=== PATIENT | male | born 1935 | race Caucasian/White ===

== ENCOUNTER 2024-04-20 13:15 | Inpatient (IN) | payer MEDICARE, BC, SELFPAY ==
[2024-04-20] VITALS (9 sets, daily range): BP systolic 112–144; BP diastolic 63–88; BMI 20.7
--- NOTE | 2024-04-20 10:35 | ED.SKININJ ---
HPI-Injury
General
Chief Complaint: Fall
Source: patient
Exam Limitations: none
Time Seen by Provider: 04/20/24 10:16
Nursing documentation reviewed up to this point in time: agreed with
History of Present Illness-Injury
Initial Injury comments:
88-year-old male who states he has no past medical history, takes no medications, 'I have been doctoring myself,' for generalized 'bone pain.' He was taking his dog to the [employer] today, the dog pulled and pulled him down onto the ground he
landed on his left hip and scraped his left elbow. He denies hitting his head. He has left hip pain and inability to lift the leg. He denies chest pain or shortness of breath. Denies abdominal pain. He states he has had no appetite, and has
been getting weaker. He states he has 'recurring bone ache all over and trouble walking' and is concerned he has cancer. He states he was evaluated at [facility] 5 or 6 weeks ago and 'they could find nothing.'
Past History
Past History
ED Past Medical History: None
Social History
Tobacco: Non-smoker
Alcohol: None
Personal: Single
Living: alone
Review of Systems
Review of Systems
Allergies reviewed?: Yes
All Other Systems: ROS reviewed and negative except as documented in HPI and ROS
Constitutional: Reports fatigue; Denies fever
Respiratory: Denies trouble breathing
Cardiac: Denies syncope
ABD/GI: Denies abdominal pain, nausea, vomiting or diarrhea
: Denies dysuria, frequency or difficulty voiding
Musculoskeletal: Reports edema and other (Generalized 'bony pain.')
Skin: Reports other (scrape left elbow)
Neurological: Reports no symptoms
Phy Exam
Physical Exam
Physical Exam:
GENERAL: No acute distress. A&Ox3.
CONSTITUTIONAL: Afebrile.
EYES: PERRL, conjunctivae normal
ENMT: Dry mucus membranes, Pharynx nl, hard of hearing
RESPIRATORY: Regular respirations, nonlabored, lungs clear.
CARDIOVASCULAR: Irregular normal rate, rhythm, no murmurs, no rubs.
GI: Soft, nontender, normal BS
MUSCULOSKELETAL: No spinal bony tenderness. Unable to move left leg due to left hip pain. Left leg mildly shortened and foot rotated outward. +1 pitting edema bilateral lower extremities, +2 pitting edema of the dorsi of the feet. Well perfused.
SKIN: Warm, dry, pink
PSYCH: Normal mood and affect. Well kept, interactive and appropriate
NEUROLOGIC: Awake, alert and oriented. No focal neurological deficits
Course
Orders/Labs/Results
Orders:
Orders
04/20/24 Breakfast
NPO
Allow oral meds: Yes
Allow clear liquids: No
NPO with Ice Chips: No
04/20/24 09:53
Hip, Left 2-3 Views [CR Hip - LT w/wo Pel 2-3 Vw*] Urgent
Comment:
Reason For Exam: pain
Include a pelvis x-ray?: Yes
04/20/24 10:29
CR Chest Single View Urgent
Reason For Exam: fall
04/20/24 10:32
Morphine Sulfate 2 mg IV NOW STA
04/20/24 10:33
Electrocardiogram (*1) Urgent
Reason for Study: Fatigue / Weakness
EKG- Treatment ONCE
04/20/24 10:36
Tetanus/Diphth/Acelpertussis [Adacel] 0.5 ml IM .ONCE ONE
04/20/24 10:39
Complete Blood Count/With Diff Urgent
Comprehensive Metabolic Panel Urgent
NT-proBNP Urgent
TSH Urgent
Comment: ADD ON
Troponin I Urgent
04/20/24 12:07
PTT Urgent
Prothrombin Time Urgent
04/20/24 12:32
Echo 2D MMode Color/Doppler Routine
Reason for Study: chf
CARDIOLOGY CONSULT Routine
Consulting Provider: Carlos Mooney
Was physician already notified: Yes
Reason for consult: bilat leg edema
Consult Orthopedic [ORTHOPEDIC CONSULT] Routine
Consulting Provider: Cheng Vaz
Was physician already notified: Yes
Reason for consult: left hip fx
04/20/24 12:39
Admit/Transfer Patient As Directed
Co-Sign Provider:
Level of Care: Inpatient admission
Assign to:: Telemetry
Physician / Group: beth calderon
Diagnosis: mechan fall w/ L hip fx,pseudothrombocytopenia, periph edema
Reason for Telemetry: Arrhythmia
Date to Stop Telemetry: 04/23/24
Time to Stop Telemetry: 11:00
Reason for Hospitalization: mechan fall w/ L hip fx,pseudothrombocytopenia, periph edema concern chf,
prolonged qtc
Expected length of stay greater than two midnights?: Yes
ELOS- Estimated Length of Stay in days: 5
I certify the patient meets the requirements for IP care: Yes
Code Status As Directed
Resuscitation Status: Do not resuscitate
Reached after discussion with pt or family/Healthcare POA: Yes
Based on pt advanced directive or healthcare POA form: Yes
Decision communicated with: per pt with son present at bedside
04/20/24 12:40
DNR Bracelet Application ONCE
04/20/24 13:00
Flush (0.9% Sodium Chloride) [Flush (Nss)] See Dose Instructions IV PER PROTOCOL
04/20/24 14:37
Magnesium Hydroxide [Milk of Magnesia] 30 ml PO DAILYPRN PRN
Morphine Sulfate 2 mg IV Q4HPRN PRN
Oxycodone [Roxicodone] 5 mg PO Q4HPRN PRN
Tamsulosin [Flomax] 0.4 mg PO DAILYPRN PRN
04/20/24 14:37
Activity As Directed
Activity Level: As Tolerated
Bladder Scan As Directed
Follow Bladder Retention/Intermittent Cath Algorithm?: Yes
PRN if no void in __ hours: 6
Comment: if not voiding 6 hrs upon arrival to floor, bladder scan & follow algorithm
Intake/ Output As Directed
Frequency: Per unit guidelines
Pneumatic Compression Sleeves As Directed
Type: Knee high
Straight Cath As Directed
Frequency: Per Retention Algorithm
Additional Instructions: straight cath as needed per acute urinary retention algorithm for 24 hrs
Additional Instructions: for bladder scan greater than 400 mL
Vital Signs As Directed
Frequency: Per unit guidelines
dressing care [Wound Care] As Directed
Location of Wound: left elbow
Treatment of Wound: daily soap with water then apply nonstick dressing with cling
Ot Eval And Treat Routine
DX Deep Vein Thrombosis Video Routine
04/20/24 Dinner
Regular
At Your Request: Limited Participation
04/20/24 15:20
Type+Screen Routine
CBC/With Diff [Complete Blood Count/With Diff] Urgent
04/20/24 16:00
Acetaminophen [Tylenol] 650 mg PO Q4HWA
04/20/24 20:00
Docusate Sodium [Colace] 100 mg PO BID
Sennosides [Senokot] 17.2 mg PO BID
04/21/24 Breakfast
NPO
Allow oral meds: Yes
Allow clear liquids: Sips of Clears
04/21/24 09:00
CeFAZolin 2 GRAM [Ancef] 2 grams in 10 ml IV PRE PROCEDURE
Povidone Iodine 10% Solution [Povidone Iodine 10%] 19 ml 0.9% Sodium Chloride 500 ml [Nss] 500 ml IRRIG OR
04/22/24 12:39
Pt Eval And Treat Routine
Treatment: after or for left hip fx
Activity Level: As Tolerated
04/23/24 11:00
DC Protocol for Telemetry ONCE
Abnormal Lab Results
04/20/24 04/20/24
10:39 12:07
RBC 4.09 L 10^6/uL
(4.70-6.10)
Hgb 11.9 L g/dL
(13.0-18.0)
Hct 36.7 L %
(39.0-52.0)
MCHC 32.4 L g/dL
(33.0-37.0)
RDW 16.1 H %
(11.5-14.5)
Abs Immat Gran (auto) 0.1 H 10^3/uL
(0-0.05)
Absolute Lymphs (auto) 1.1 L 10^3/uL
(1.2-3.4)
Immature Gran % 1.5 H %
(0-0.5)
PT 15.4 H Sec
(11.4-14.6)
Sodium 133 L mmol/L
(135-145)
Alkaline Phosphatase 337 H U/L
(38-126)
Total Protein 5.1 L g/dl
(6.3-8.2)
Albumin 3.1 L g/dl
(3.5-5.0)
04/20/24 10:39
04/20/24 10:39
Vital Signs
Initial and Last Documented VS:
Initial Vital Signs
Temp Pulse Resp BP Pulse Ox
98.9 F 75 18 132/88 94
04/20/24 09:46 04/20/24 09:46 04/20/24 09:46 04/20/24 09:46 04/20/24 09:46
Last Documented Vital Signs
Temp Pulse Resp BP Pulse Ox
97.4 F 86 16 146/90 95
04/21/24 03:29 04/21/24 03:29 04/21/24 03:29 04/21/24 03:29 04/21/24 03:29
MDM/Problems Addressed
Differential Diagnosis Includes:
fx left hip
MDM/Problems Addressed:
88-year-old male who states he has no past medical history, takes no medications, 'I have been doctoring myself,' for generalized 'bone pain.' He was taking his dog to the [facility] today, the dog pulled and pulled him down onto the ground he
landed on his left hip and scraped his left elbow. He denies hitting his head. He has left hip pain and inability to lift the leg. He denies chest pain or shortness of breath. Denies abdominal pain. He states he has had no appetite, and has
been getting weaker. He states he has 'recurring bone ache all over and trouble walking' and is concerned he has cancer. He states he was evaluated at [facility] 5 or 6 weeks ago and 'they could find nothing.'
Afebrile, NAD
CBC with no clinically significant abnormality
CMP with no clinically significant abnormality, mild elevation of alk phosphatase
Left hip x-ray: Fracture surgical neck versus intertrochanteric
Chest x-ray: Radiology report read: IMPRESSION:
1. Mild cardiomegaly.
2. Suggestion of mild pulmonary vascular congestion.
PT/INR, PTT pending
Hospitalist and orthopedics notified of admission
*Critical Care Note
Total Time (30-74mins, 75-104mins- exclusive of procedures): Not Applicable
ED Attending Note
-
Portions of this chart may have been created with voice recognition software.� Occasional wrong word or��sound alike� substitutions may have occurred due to the inherent limitations of voice recognition software.
Discharge Plan
Departure
Patient Disposition: Admit
Date of Disposition: 04/20/24
Time of Disposition: 11:44
Admit to: Med/Surg
Presentation/result/management discussed w/ accepting MD/DO: Hospitalist
Condition: Fair
Discharge Problem:
Closed left hip fracture, Abrasion of left elbow
Interventions
Interventions:
*Risk Screen - Suicide Last Done: 04/20/24 09:46
*General Assessment Last Done: 04/20/24 09:46
*Neglect/Abuse Screening Last Done: 04/20/24 09:46
ED- Fall Risk Assessment Last Done: 04/20/24 14:32
*ED COVID-19 Vaccine History Last Done: 04/20/24 09:46
*Nursing Disposition Last Done: 04/20/24 14:32
ED-Musculoskeletal Assessment Last Done: 04/20/24 09:46
ED- Neurological Assessment Last Done: 04/20/24 09:46
ED-Skin Assessment Last Done: 04/20/24 09:46
Discharge Date and Time
Discharge Date/Time: 04/20/24 14:35
[2024-04-20] MEDS: MORPHINE SULFATE 2 MG IV ×2 (10:40→22:23)
[2024-04-20 10:58] LABS: % Basophils 0.8 % (0-2); % Eosinophils 0.8 % (0-6); % Immature Granulocytes 1.5 % (0-0.5); % Lymphocytes 21.2 % (20.5-51.1); % Monocytes 9.3 % (1.7-9.3); % Neutrophils 66.4 % (42.2-75.2); Absolute Immature Granulocytes 0.1 10^3/uL (0-0.05); Absolute Lymphocytes 1.1 10^3/uL (1.2-3.4); Absolute Monocytes 0.5 10^3/uL (0.1-0.6); Absolute Neutrophils 3.5 10^3/uL (1.4-6.5); Hematocrit 36.7 % (39.0-52.0); Hemoglobin 11.9 g/dL (13.0-18.0); Mean Corp Hgb Conc. 32.4 g/dL (33.0-37.0); Mean Corpuscular Hgb 29.1 pg (27.0-31.0); Mean Corpuscular Volume 89.7 fL (80.0-94.0); Nucleated Red Blood Cells % 0 % (-); Red Blood Cell Count 4.09 10^6/uL (4.70-6.10); Red Cell Dist. Width 16.1 % (11.5-14.5); White Blood Cell Count 5.3 10^3/uL (4.8-10.8)
[2024-04-20 11:13] LABS: ALT (SGPT) 14 U/L (0-50); AST (SGOT) 27 U/L (17-59); Albumin 3.1 g/dl (3.5-5.0); Alkaline Phosphatase 337 U/L (38-126); Blood Urea Nitrogen 17 mg/dl (9-20); Calcium 9.4 mg/dl (8.4-10.2); Carbon Dioxide 22 mmol/L (22-30); Chloride 103 mmol/L (98-107); Estimated Creatinine Clearance 58 ml/min; Glucose 94 mg/dl (70-99); Potassium 4.4 mmol/L (3.5-5.1); Sodium 133 mmol/L (135-145); Total Bilirubin 0.6 mg/dl (0.2-1.3); Total Protein 5.1 g/dl (6.3-8.2); eGFR > 60.00
[2024-04-20 11:17] LABS: NT-proBNP 3580 pg/ml; Troponin I < 0.012 ng/ml
--- NOTE | 2024-04-20 12:13 | HPS.HSE ---
Family Physician
-
Family Physician: NOT KNOW UNKNOWN - PT DOES
Chief Complaint
-
Fall left hip pain
History of Present Illness
88-year-old male who reports he fell in the parking lot on his left side as his dog was pulling the leash trying to run after an animal. He presented to the ER by EMS with left-sided hip pain and rotation of his left leg with left elbow abrasion.
He denies medical problems. He reports he sees a doctor once a year and was seen 3 weeks ago. He has bilateral leg edema +2 he reports has been for 10 years although has not seen a booth cleaner and had any evaluation.
He denies headache, neck pain, fever, chills, chest pain, palpitations, shortness breath, cough, abdominal pain, nausea, vomiting, diarrhea, urinary symptoms. He denies any past medical history
Medical History
Past Medical History
Past Medical History: Reports None
Past Surgical History: Reports Other (Pilonidal cyst removal)
Social History
Tobacco: Non-smoker
Alcohol: None
Drug: None
Personal: Single
Living: Alone
Employment: Retired
Family History
Family History: Not pertinent
Allergies / Home Medications
Allergies reflects when Allergies were last updated in [employer].
Home Medications with original date entered in [employer]
Allergy/Medication List:
Allergies
Allergy/AdvReac Type Severity Reaction Status Date / Time
No Known Allergies Allergy Unverified 04/20/24 09:49
Home Medications
Herbals And Vitamins 1 dose PO DAILY Supplement 04/20/24
mirtazapine 15 mg tablet 15 mg PO mental health/sleep 04/20/24
Review of Systems
-
History Source: Patient and Family (son at bedside )
Constitutional: Denies Fever, Fatigue or Chills
EENT: Reports Other (Chronic dry eye with bilateral extropion present); Denies Sore Throat or Runny Nose
Respiratory: Denies Cough or Trouble Breathing
Cardiac: Denies Chest Pain, Diaphoresis, Palpitations or Syncope
Abdomen/GI: Denies Abdominal Pain, Nausea, Vomiting, Diarrhea, Constipated, Bloody Stools or Black Stools
: Denies Dysuria, Frequency, Flank Pain, Incontinence or Difficulty Voiding
Musculoskeletal: Reports Joint Pain (Left hip with left hip rotation) and Edema (Bilateral +2 lower extremity edema)
Skin: Denies Itching or Rash
Neurological: Denies Dizzy, Headache or Weakness
Endocrine: Reports No Symptoms
Hematologic/Lymphatic: Reports No Symptoms
Psych: Reports Calm
Physical Exam
Vital Signs
Vital Signs
Temp Pulse Resp BP Pulse Ox
98.9 F 73 20 130/69 100
04/20/24 09:46 04/20/24 10:30 04/20/24 10:30 04/20/24 10:00 04/20/24 10:30
Physical Exam
General: Comfortable and Conversant; No Fever or Chills
HEENT: NormoCephalic, Anicteric, Atraumatic, PERRLA, [place] Conjunctivae, No Ptosis, Neck Nontender and Other (Chronic dry eye with bilateral extropion present)
Respiratory: Clear; No Wheezes, Rales or Rhonchi
Cardiac: S1/S2, Regular Rhythm and Peripheral Edema (+2 bilateral lower legs); No Murmur, Rub, Gallop or JVD
Breast: Deferred by me
GI: Soft, Non Tender, Non Distended, Normal Bowel Sounds and No Hepatosplenomegaly
Rectal: Deferred by Provider
Genito-urinary: Deferred by me
Musculoskeletal: No Clubbing, No Cyanosis, Edema, Left Lower Extremity (+2), Edema, Right Lower Extremity (+2) and Other (Left hip tenderness with left leg external rotation secondary to fall with left hip fracture, distal sensation intact, +2
dorsal pedal pulses); No Edema, Left Upper Extremity or Edema, Right Upper Extremity
Skin: Warm, Dry and Other (Abrasion left elbow); No Rash
Neuro: AO x 3, Nonfocal/grossly intact, Cranial Nerves Intact and Other (Chronic SNOQUALMIE); No Slurred Speech, Facial Droop or Tremors
Psych: Calm
Laboratory Results
-
04/20/24 10:39
04/20/24 10:39
Laboratory Results
Total Bilirubin 0.6 mg/dl (0.2-1.3) 04/20/24 10:39
AST 27 U/L (17-59) 04/20/24 10:39
ALT 14 U/L (0-50) 04/20/24 10:39
Alkaline Phosphatase 337 U/L (38-126) H 04/20/24 10:39
Troponin I < 0.012 ng/ml 04/20/24 10:39
Impression/Plan
-
Impression/plan:
Admit to telemetry
#Mechanical fall with left femur fracture
[facility]
-Pain control, bowel regimen
-N.p.o. after midnight
Tetanus shot given in ER
-PT/OT/case management eval
Left hip pelvis x-ray: Minimally displaced acute intertrochanteric fracture of the left femur
Incidental note of sclerotic lesion involving the left ischium would recommend further nonemergent on CT of the pelvis
#Mechanical fall with left elbow abrasion
-Soap and water with nonadherent dressing daily
#Pseudothrombocytopenia
-Plt 10 with clumping
Repeat PLT 207 stable
#Prolonged QTc
-QTc 499 MS will monitor
Hold prolonging QTc agents
EKG: HR 74 bpm sinus rhythm with PVCs, prolonged QTc 499 MS
#Bilateral leg peripheral edema concerning for underlying CHF
I/O, daily weights
-Consult cardiology
-Check 2D echo
CXR: Mild cardiomegaly, mild pulmonary vascular congestion
#Chronic extropion and bilateral eyes
-Will add artificial tears
DVT prophylaxis
SCDs
DNR per patient with son at bedside
--- NOTE | 2024-04-20 12:28 | CON.ORTHO ---
Consultation
-
Date/Time Consultation Requested: May 13/1232
Date/Time Consultation Performed: May 13/1233
Requesting Provider: ALANA Luu
Performing Provider: Valeria caraballo Milind
Reason for Consultation: Left hip Fx
Consultation - Orthopedics
History
Dictation#[id number]
Was asked to see this very pleasant 88-year-old white male with his son at the bedside, after presenting to the [facility] ED after a fall. He denies any PMH, and reports 'doctoring himself over the years.' he was found to have a
left-sided intertrochanteric fracture of the left femur on x-rays. Currently being seen by ED ALANA, Lidia Roberson. I am told that he has numerous concerning lab values and that these will be repeated shortly. Patient denies a prodrome, head
strike, or LOC. We have been requested in consultation due to his left hip fracture
Allergies / Home Medications
Allergy/AdvReac Type Severity Reaction Status Date / Time
No Known Allergies Allergy Unverified 04/20/24 09:49
�Medication �Instructions �Recorded
Herbals And Vitamins 1 dose PO DAILY Supplement 04/20/24
mirtazapine 15 mg tablet 15 mg PO HS mental health/sleep 04/20/24
Vital Signs / Lab Results
Temp Pulse Resp BP Pulse Ox
98.9 F 73 20 130/69 100
04/20/24 09:46 04/20/24 10:30 04/20/24 10:30 04/20/24 10:00 04/20/24 10:30
04/20/24 10:39
04/20/24 10:39
Assessment / Plan
PE: Afeb. Bedrest. Left hip skin intact. LLE slightly short. moderate amount of edema bilaterally in the lower extremities. Pain to palpation about the left hip. Positive logroll. Deferred range of motion due to known fracture. Calf is soft
and nontender. DNVI LLE
Hgb-11.9
Platelets-10, repeat pending
Xrays: LEFT intertochanteric femur fracture
Impression: LEFT intertrochanteric femur fracture
Plan: I had a lengthy bedside discussion with the patient and his son. Unfortunately his left hip fracture would be best managed with ORIF. however, it appears as though further workup medically will be necessary prior to us proceeding with
surgery. I discussed the nonsurgical and surgical management and all the RBAs associated with each approach. He has accepted all the proposed risks of surgery and would like to proceed so that we can mobilize him as quickly as possible. we
briefly discussed the postop and rehab course, for which CM assistance will be very much appreciated. surgical and blood consents have been signed and scanned to [facility]. Consent has been left with the OR desk. operative site has been marked as
the left hip. I will tentatively prepare him for surgery tomorrow with an NPO order pMN tonight. T&S has been requested. ABX and irrigation products our on-call. Mechanical DVT ppx recommended. If deemed appropriate heparin can be used but would
hold dosing tonight for possible surgery tomorrow. we appreciate the efforts of the primary team and consultants in preparing him for surgery, which could be at the earliest tomorrow under the direction of Dr. Vaz for an ORIF of his LEFT hip, or
later in the week. Will follow
[2024-04-20 12:35] LABS: INR 1.24; PT 15.4 Sec (11.4-14.6)
[2024-04-20 12:36] LABS: APTT 27.9 Sec (23.4-35.0)
[2024-04-20] MEDS: ADACEL 0.5 ML IM (13:10)
--- NOTE | 2024-04-20 13:55 | CON.CAR ---
Addendum entered and electronically signed by Carlos Mooney MD 04/20/24 18:11:
I saw and examined the patient.
The PACKING SHED SUPERVISOR's note was reviewed and I agree with the note.
Comment: He will be at elevated cardiac risk (cardiac risk just over 1%) but that is largely driven by his age and stable suspected chronic heart failure. He has no evidence of ACS, unstable arrhythmia, or decompensation of heart failure.
Fortunately his echo shows no severe valvular heart disease. I would proceed with surgery at elevated cardiac risk without further cardiac investigation or change in his medications. We will consider gentle diuresis after surgery.
Original Note:
Consultation
Consultation Request
Date/Time Consultation Requested: 04/20/24 1232
Date/Time Consultation Performed: 04/20/24 1.57
Requesting Provider: ALANA Luu
Performing Provider: Dr. Granado for Dr. Mooney
Reason for Consultation: Pre-operative cardiac evaluation
Medical History
-
Chief Complaint: Pre- operative cardiac evaluation
History of Present Illness:
88-year-old male with no significant PMHx (however son reports swelling of feet right greater than left for 10 years) presents to the ER for a fall in the parking lot on his left side as his pet pulled the leash and he was running after his dog.
Denies loss of consciousness or hitting his head after the fall. Upon admission, he was found to have left intertrochanteric fracture, and left elbow abrasion). He reports to see [facility], [facility] minutes away from [place].
His son states that he was called by his primary many months ago to discuss the diagnosis, but his father probably never followed up. However he reports that he was seeing his primary for annual wellness visit. His pedal edema was never
evaluated.(primary - Dr. Pavon at [facility])
He denies any shortness of breath, paroxysmal nocturnal dyspnea, orthopnea, cough, palpitations, headaches, blurring of vision, bowel or bladder habit changes, sleep or appetite disturbances.
Past Medical History
Past Medical History: None
Past Surgical History: Other (pilonidal cyst removal)
Social History
Tobacco: Former Smoker (10 pack year smoking history, quit 40 years ago)
Alcohol: Occasional (1-2 beers a month)
Drug: None
Personal:
Living: Alone
Employment: Retired
Family History
Family History: Reviewed & Not Pertinent
Allergies / Home Medications
Allergy/AdvReac Type Severity Reaction Status Date / Time
No Known Allergies Allergy Unverified 04/20/24 09:49
�Medication �Instructions �Recorded �Confirmed �Type
Herbals And Vitamins 1 dose PO DAILY Supplement 04/20/24 History
mirtazapine 15 mg tablet 15 mg PO HS mental health/sleep 04/20/24 History
Review of Systems
-
History Source: Patient
All other systems: Negative unless noted
Musculoskeletal: Joint Pain and Other (left hip pain and fracture)
Physical Exam
Vital Signs
Temp Pulse Resp BP Pulse Ox
98.9 F 71 24 112/78 98
04/20/24 09:46 04/20/24 13:15 04/20/24 13:15 04/20/24 13:14 04/20/24 13:15
Lab Results
04/20/24 10:39
Troponin I < 0.012 ng/ml 04/20/24 10:39
Sie-R-Qwblnpelnot Pept 3580 pg/ml 04/20/24 10:39
Physical Exam
General: No Apparent Distress and Comfortable
HEENT: Normocephalic and Anicteric
Respiratory: Clear and Non Labored Respirations; Negative Wheezes, Crackles or Rhonchi
Cardiac: S1/S2, Regular Rhythm and Other (diastolic murmur, 2+ dorsalis pedis, posterior tibial and ulnar pulses b/l); Negative Rub
GI: Soft, Non Tender, Non Distended and Normal Bowel Sounds
Musculoskeletal: Edema (2+ pitting edema)
Skin: Warm
Neuro: AO x 3
Impression / Plan
-
Impression -
88 Yo M with no significant PMHx presents to the hospital s/p mechanical fall and diagnosed with left intertrochanteric fracture. We are consulted for pre-operative cardiac evaluation.
Plan -
Left Intertrochanteric fracture - orthopedics notes reviewed, possibility of ORIF.
ORIF is an intermediate risk procedure.
Preop CV risk assessment-
Patient has symptoms of chronic congestive heart failure for 10 years. He states that he is able to walk a his dog for 5 blocks without SOB, chest pain or palpitations. According to NSQIP risk calculator, he is at approximately at 1.8% risk of
cardiac complication and 18.4 percent at risk of any complication. He is an intermediate risk candidate given his h/o of chronic stable congestive heart failure.
He will need postop monitoring and diuresis for his congestive heart failure. Given current blood pressure, it would be appropriate to wait for diuresis until after surgery.
Chronic stable CHF -
asymptomatic, not on any medications.
Most recent echo - 04/20/24
Left ventricular ejection fraction is 50-55% by volumetric assessment.
Stage I diastolic dysfunction suggestive of abnormal relaxation.
Severe left atrial enlargement.
Moderately dilated right atrium.
Thickened mitral valve leaflets with mild posterior mitral valve prolapse.
Mild to moderate mitral regurgitation.
Mild aortic regurgitation.
Mild to moderate tricuspid regurgitation.
Estimated PASP 50 mmHg and estimated RA 3 mmHg.
Dilated coronary sinus (can be normal variant and can be seen with persistent
left SVC).
No prior study available for comparison.
Consider gentle diuresis after surgery.
Data Reviewed
-
EKG: Tracing Personally Visualized and interpreted (sinus rhythm with PVC)
Radiology: Image Personally Visualized and interpreted (Mild cardiomegaly, and pulmonary vascular congestion.)
Ultrasound: Image Personally Visualized and interpreted
[2024-04-20 15:30] LABS: % Basophils 0.6 % (0-2); % Eosinophils 0.1 % (0-6); % Immature Granulocytes 1.3 % (0-0.5); % Monocytes 6.4 % (1.7-9.3); % Neutrophils 81.6 % (42.2-75.2); Absolute Immature Granulocytes 0.1 10^3/uL (0-0.05); Absolute Lymphocytes 0.7 10^3/uL (1.2-3.4); Absolute Monocytes 0.4 10^3/uL (0.1-0.6); Absolute Neutrophils 5.6 10^3/uL (1.4-6.5); Hematocrit 32.9 % (39.0-52.0); Hemoglobin 11.1 g/dL (13.0-18.0); Mean Corp Hgb Conc. 33.7 g/dL (33.0-37.0); Mean Corpuscular Hgb 29.5 pg (27.0-31.0); Mean Corpuscular Volume 87.5 fL (80.0-94.0); Mean Platelet Volume 10.4 fL (7.4-10.4); Nucleated Red Blood Cells % 0.3 % (-); Platelet Count 207 10^3/uL (130-400); Red Blood Cell Count 3.76 10^6/uL (4.70-6.10); Red Cell Dist. Width 16.1 % (11.5-14.5); White Blood Cell Count 6.8 10^3/uL (4.8-10.8)
[2024-04-20 15:58] LABS: TSH 2.85 uIU/ml (0.47-4.68)
--- NOTE | 2024-04-20 16:21 | W.PN.UPDATE ---
Update Note
Progress Note Update
This note serves as an addendum to the H&P by ALANA Luu, on April 20, 2024.
88-year-old male with past medical history of chronic lower extremity swelling (right greater than the left) for many years, who reported falling in the parking lot on his left side as his dog was pulling the leash trying to run after an animal. He
presented to the ER by EMS with left-sided hip pain and rotation of his left leg with left elbow abrasion. He denied any medical problems. He reports he sees a doctor once a year and was seen 3 weeks ago. He has bilateral leg edema +2 he reports
has been for 10 years although has not seen a car oiler or had any evaluation.
Vital Signs noted
Physical Exam
General: No Apparent Distress and Comfortable
HEENT: Normocephalic
Respiratory: Clear and Non Labored Respirations Bilaterally
Cardiac: S1/S2, Regular Rhythm and Other (diastolic murmur, 2+ dorsalis pedis, posterior tibial and ulnar pulses b/l)
GI: Soft, Non Tender, Non Distended and Normal Bowel Sounds
Musculoskeletal: Edema (2+ pitting edema). Left hip tenderness with left leg external rotation secondary to fall with left hip fracture, distal sensation intact, +2 dorsal pedal pulses.
Skin: Warm
Neuro: AAO x 3
Assessment/Plan
#Mechanical fall with left femur fracture
-Despite the risk, patient needs this surgery to avoid complications in the future
-Consulted Ortho-[facility] Ortho, recommendations appreciated
-Pain control, bowel regimen
-N.p.o. after midnight
-Tetanus shot given in ER
-PT/OT/case management eval
Left hip pelvis x-ray (as per radiologist's report): Minimally displaced acute intertrochanteric fracture of the left femur
Incidental note of sclerotic lesion involving the left ischium would recommend further nonemergent on CT of the pelvis
#Mechanical fall with left elbow abrasion
-Consulted wound care, evaluation and recommendations appreciated
#Pseudothrombocytopenia
-Plt 10 with clumping
-Repeat PLT 207
#Prolonged QTc
-QTc 499 MS will monitor
Hold prolonging QTc agents
EKG: HR 74 bpm sinus rhythm with PVCs, prolonged QTc 499 MS
#Bilateral leg peripheral edema concerning for underlying CHF
I/O, daily weights
-Consulted cardiology --> diuretics for after surgery
-Check 2D echo
CXR: Mild cardiomegaly, mild pulmonary vascular congestion
#Chronic extropion and bilateral eyes
DVT prophylaxis
SCDs
DNR per patient with son at bedside
[2024-04-20] MEDS: TYLENOL 650 MG PO ×2 (16:32→22:22)
[2024-04-20] MEDS: SENOKOT 17.2 MG PO (22:22)
[2024-04-20] MEDS: REFRESH EYE DROPS (PF) 1 DROPS OPHTH (22:23)
[2024-04-20] MEDS: COLACE 100 MG PO (22:23)
[2024-04-20] MEDS: TYLENOL PO (23:53)
[2024-04-21] VITALS (16 sets, daily range): BP systolic 117–146; BP diastolic 64–93; BMI 19.7
[2024-04-21] MEDS: TYLENOL PO ×3 (03:43→17:59)
[2024-04-21] MEDS: MORPHINE SULFATE 2 MG IV (05:11)
--- NOTE | 2024-04-21 06:38 | W.PN.UPDATE ---
Update Note
Progress Note Update
88m left intertrochanteric femur fx
-planned for OR today for L hip CMN with Dr Vaz pending medical clearance
-consent and ABX on file, T & S on file
-NPO
[2024-04-21] MEDS: TYLENOL 650 MG PO ×2 (09:14→21:23)
[2024-04-21] MEDS: COLACE 100 MG PO ×2 (09:14→21:23)
[2024-04-21] MEDS: SENOKOT 17.2 MG PO ×2 (09:14→21:23)
--- NOTE | 2024-04-21 11:20 | W.PN.CD ---
Addendum entered and electronically signed by Maximus Mendiola MD 04/21/24 17:56:
88 yo male with mild/moderate MR, mild AR, mild/moderate TR. I evaluated him today after orthopedic surgery for his left hip. Doing well, no chest pain. Exam with RRR, no murmurs, no edema. Tele: NSR, PVC's.
Monitor on tele overnight.
Original Note:
Today's Communication / Plan
-
Stable on examination, no change in medications.
Impression / Plan
-
Impression -
88 Yo M with no significant PMHx presents to the hospital s/p mechanical fall and diagnosed with left intertrochanteric fracture. We are consulted for pre-operative cardiac evaluation.
Plan -
Left Intertrochanteric fracture - orthopedics notes reviewed, possibility of ORIF.
Patient is going to the planned procedure today.
Preop CV risk assessment- >1%
Patient remains stable with no new onset of SOB, palpitations, or chest pain.
will consider gentle diuresis after surgery tomorrow.
Physical Exam
Vital Signs/Labs
Vital Signs
Temp Pulse Resp BP Pulse Ox
98.7 F 77 18 141/82 95
04/21/24 07:41 04/21/24 07:41 04/21/24 07:41 04/21/24 07:41 04/21/24 07:41
04/20/24 04/21/24 04/22/24
06:59 06:59 06:59
Actual Weight 53.581 kg
04/20/24 15:20
04/20/24 10:39
PT 15.4 Sec (11.4-14.6) H 04/20/24 12:07
INR 1.24 04/20/24 12:07
APTT 27.9 Sec (23.4-35.0) 04/20/24 12:07
TSH 2.85 uIU/ml (0.47-4.68) 04/20/24 10:39
04/20/24
10:39
Acg-M-Ooszdftjqhp Pept 3580
LAB Results
04/20/24
10:39
Troponin I < 0.012
Physical Exam
Constitutional: Comfortable
Cardiovascular: Rhythm & rate is regular, Pedal edema present and Diastolic murmur present (10/26)
Respiratory: Lungs clear to auscul.
GI: Soft and Distention absent
Neuro/Psych: AO x 3
Data Reviewed
-
Date of Service: April 21, 2024
[2024-04-21] MEDS: NSS 1000 IV (16:05)
--- NOTE | 2024-04-21 16:49 | W.PN.HOSP.TC ---
Today's Communication/Plan
-
Hip Surgery today
Recheck labs this evening
Assessment / Plan
Assessment / Plan
Physical Exam
General: No Apparent Distress and Comfortable
HEENT: Normocephalic
Respiratory: Clear and Non Labored Respirations Bilaterally
Cardiac: S1/S2, Regular Rhythm and Other (diastolic murmur, 2+ dorsalis pedis, posterior tibial and ulnar pulses b/l)
GI: Soft, Non Tender, Non Distended and Normal Bowel Sounds
Musculoskeletal: Edema (2+ pitting edema). Left hip tenderness with left leg external rotation secondary to fall with left hip fracture, distal sensation intact, +2 dorsal pedal pulses.
Skin: Warm
Neuro: AAO x 3
Assessment/Plan
#Mechanical fall with left femur fracture
-Despite the risk, patient needs this surgery to avoid complications in the future
-Consulted Ortho-[facility] Ortho, recommendations appreciated
-Pain control, bowel regimen
-N.p.o. for surgery today
-Tetanus shot given in ER
-PT/OT/case management eval
Left hip pelvis x-ray (as per radiologist's report): Minimally displaced acute intertrochanteric fracture of the left femur
Incidental note of sclerotic lesion involving the left ischium would recommend further nonemergent on CT of the pelvis
#Mechanical fall with left elbow abrasion
-Consulted wound care, evaluation and recommendations appreciated
#Pseudothrombocytopenia
-Plt 10 with clumping
-Repeat PLT 207
#Prolonged QTc
-QTc 499 MS will monitor
Hold prolonging QTc agents
EKG: HR 74 bpm sinus rhythm with PVCs, prolonged QTc 499 MS
#Bilateral leg peripheral edema concerning for underlying CHF
I/O, daily weights
-Consulted cardiology --> diuretics for after surgery
-Check 2D echo
CXR: Mild cardiomegaly, mild pulmonary vascular congestion
#Chronic extropion and bilateral eyes
DVT prophylaxis
SCDs
DNR per patient with son at bedside
Anticipated Discharge: > 48 hours
Subjective/Interval History
-
Date of Service: April 21, 2024
Patient was seen and examined. She denied any pain or any symptoms or complaints.
Objective Data
-
Labs:
Laboratory Results
04/21/24
19:15
WBC Pending
Hgb Pending
Hct Pending
Plt Count Pending
Sodium Pending
Potassium Pending
Chloride Pending
Carbon Dioxide Pending
BUN Pending
Creatinine Pending
Glucose Pending
Calcium Pending
Vital Signs:
Vital Signs
Temp Pulse Resp BP Pulse Ox
98.7 F 78 19 129/74 99
04/21/24 14:55 04/21/24 16:00 04/21/24 16:00 04/21/24 15:45 04/21/24 16:00
I&O
04/20/24 04/21/24 04/22/24
06:59 06:59 06:59
Intake Total 720 / 720 220 / 220
Output Total 450 / 450
Balance 270 / 270 220 / 220
--- NOTE | 2024-04-21 17:42 | PTCARENOTE ---
Patient transferred to [address] [place] [address] post op from [facility] post left hip orif with gamma nail.The patient rates his pain at a 2 out of 10.All three Aquacells are intact with a small amount of drainage which is marked. He is alert and oriented but
forgetful.Neurovascular assessment is within normal limits and ongoing.The patient is in his bed with the call munguia in reach.
[2024-04-21] MEDS: ASPIRIN 325 MG PO (17:59)
[2024-04-21 19:28] LABS: Hematocrit 33.5 % (39.0-52.0); Hemoglobin 11.2 g/dL (13.0-18.0); Mean Corp Hgb Conc. 33.4 g/dL (33.0-37.0); Mean Corpuscular Hgb 29.9 pg (27.0-31.0); Mean Corpuscular Volume 89.6 fL (80.0-94.0); Mean Platelet Volume 10.7 fL (7.4-10.4); Platelet Count 196 10^3/uL (130-400); Red Blood Cell Count 3.74 10^6/uL (4.70-6.10); Red Cell Dist. Width 16.1 % (11.5-14.5); White Blood Cell Count 9.2 10^3/uL (4.8-10.8)
[2024-04-21 19:41] LABS: Blood Urea Nitrogen 18 mg/dl (9-20); Calcium 8.9 mg/dl (8.4-10.2); Carbon Dioxide 24 mmol/L (22-30); Chloride 101 mmol/L (98-107); Estimated Creatinine Clearance 64 ml/min; Glucose 168 mg/dl (70-99); Magnesium 1.9 mg/dl (1.6-2.3); Potassium 4.5 mmol/L (3.5-5.1); Sodium 132 mmol/L (135-145); eGFR > 60.00
[2024-04-21] MEDS: ANCEF 5 IV (21:24)
[2024-04-21] MEDS: DILAUDID 0.25 MG IV (21:27)
[2024-04-22] VITALS (8 sets, daily range): BP systolic 115–148; BP diastolic 71–96; PULSE 82–83; O2SAT 96
[2024-04-22] MEDS: TYLENOL 650 MG PO ×6 (00:10→20:43)
[2024-04-22] MEDS: NSS 1000 IV (05:42)
[2024-04-22] MEDS: ANCEF 5 IV (05:45)
--- NOTE | 2024-04-22 07:40 | W.PN.ORTHO ---
Today's Communication / Plan
-
88-year-old male postop day 1 left hip supplementary nail fixation with Dr. Vaz
-Weightbearing as tolerated to left lower extremity
-DVT prophylaxis aspirin 325 mg daily x 30 days unless otherwise per primary
-Pain controlled with current regimen
-PT/OT/discharge planning
-Diet per primary
Assessment
.
Distal Motor Intact: Yes
Dressing:
Clean, dry and intact.
Plan
.
Surgery / Date: 21 April [address] Dr[address] Vaz
Activity:
Out of bed.
PT/OT
Subjective
.
.:
Patient resting comfortably.
Vital Signs and Labs
.
Vital Signs and Labs:
Lab Results
04/21/24 19:20
04/21/24 19:20
Temp Pulse Resp BP Pulse Ox
98.3 F 81 17 120/71 95
04/22/24 03:59 04/22/24 03:59 04/22/24 03:59 04/22/24 03:59 04/22/24 03:59
PT 15.4 Sec (11.4-14.6) H 04/20/24 12:07
INR 1.24 04/20/24 12:07
[2024-04-22] MEDS: SENOKOT 17.2 MG PO ×2 (07:49→20:05)
[2024-04-22] MEDS: ASPIRIN 325 MG PO (07:49)
[2024-04-22] MEDS: COLACE 100 MG PO ×2 (07:49→20:04)
--- NOTE | 2024-04-22 09:02 | PN.CDI ---
CDI
- -
CDI:
Physician Documentation Request
Admit Date: 04/20/24 13:15
Dear Doctor Zac,
Patient admitted for hip fracture.
Please review the following and provide your response in the progress notes.
Clinical Indicators:
Height: 5' 5'
Weight:118 lbs
BMI:19.7
If possible, please provide an associated diagnosis related to the abnormal BMI, such as:
Underweight
Cachectic
BMI is not significant
Other
BMI < or = to 19.9
Underweight
Weight Loss
Cachectic
Anorexia
Use of terms such as suspected, likely, concern for, or probable (associated with a specific diagnosis that is being evaluated, monitored, or treated as if it exists) are acceptable and can be coded in the inpatient setting, when documented at the
time of discharge.
Thank you,
Maria Luisa Dubon RN, BSN
CDI Specialist
Available via [employer] text
Please use your independent medical judgment in providing your response.
--- NOTE | 2024-04-22 09:04 | W.PN.CD ---
Addendum entered and electronically signed by Carlos Mooney MD 04/22/24 14:17:
I saw and examined the patient.
The CAR PORTER's note was reviewed and I agree with the note.
Comment: He tolerated noncardiac surgery well. He may have chronic HFpEF but has no significant complaints and just mild edema. I will avoid diuresis at this time. He may see us in the office if PALACIOS or PND/orthopnea develops. He should see his
PCP who can consider adding a diuretic to his regimen.
No cardiac complications detected from surgery.
Cardiology will sign off.
Original Note:
Today's Communication / Plan
-
Cardiology sign off.
Impression / Plan
-
Impression -
88 Yo M with no significant PMHx presents to the hospital s/p mechanical fall and diagnosed with left intertrochanteric fracture. Echocardiogram - mild AR, Mild- moderate MR and TR
Plan -
Left Intertrochanteric fracture - s/p ORIF.
Patient remains stable with no new onset of SOB, palpitations, or chest pain.
BP stable, does not warrant diuresis.
Telemetry summary - Avg HR-87, RRR, PVCs
Physical Exam
Vital Signs/Labs
Vital Signs
Temp Pulse Resp BP Pulse Ox
98.2 F 81 16 115/73 96
04/22/24 07:14 04/22/24 07:14 04/22/24 07:14 04/22/24 07:14 04/22/24 07:14
04/21/24 04/22/24 04/23/24
06:59 06:59 06:59
Actual Weight 53.581 kg
04/21/24 19:20
04/21/24 19:20
PT 15.4 Sec (11.4-14.6) H 04/20/24 12:07
INR 1.24 04/20/24 12:07
APTT 27.9 Sec (23.4-35.0) 04/20/24 12:07
Magnesium 1.9 mg/dl (1.6-2.3) 04/21/24 19:20
TSH 2.85 uIU/ml (0.47-4.68) 04/20/24 10:39
04/20/24
10:39
Ohe-O-Sodfyneqtrv Pept 3580
LAB Results
04/20/24
10:39
Troponin I < 0.012
Physical Exam
Constitutional: Comfortable
Cardiovascular: Rhythm & rate is regular, Pedal edema present (2+ pitting) and S1S2 is normal
Respiratory: Respiratory effort normal and Lungs clear to auscul.
GI: Soft, Distention absent and Non tender
Neuro/Psych: AO x 3
Data Reviewed
-
Date of Service: April 22, 2024
--- NOTE | 2024-04-22 14:05 | W.PN.HOSP.TC ---
Today's Communication/Plan
-
PT/OT
Rehab/SNF Placement
Assessment / Plan
Assessment / Plan
Physical Exam
General: No Apparent Distress and Comfortable
HEENT: Normocephalic
Respiratory: Clear and Non Labored Respirations Bilaterally
Cardiac: S1/S2, Regular Rhythm and Other (diastolic murmur, 2+ dorsalis pedis, posterior tibial and ulnar pulses b/l)
GI: Soft, Non Tender, Non Distended and Normal Bowel Sounds
Musculoskeletal: Edema (2+ pitting edema). Left hip tenderness with left leg external rotation secondary to fall with left hip fracture, distal sensation intact, +2 dorsal pedal pulses.
Skin: Warm
Neuro: AAO x 3
Assessment/Plan
#Mechanical fall with left femur fracture status post left hip supplementary nail fixation with Dr. Vaz on April 21, 2024
-Despite the risk, patient needs this surgery to avoid complications in the future
-Consulted Ortho-[facility] Ortho, recommendations appreciated
-Pain control, bowel regimen
-Weightbearing as tolerated to left lower extremity
-DVT prophylaxis aspirin 325 mg daily x 30 days
-Tetanus shot given in ER
-PT/OT/case management eval
Left hip pelvis x-ray (as per radiologist's report): Minimally displaced acute intertrochanteric fracture of the left femur
Incidental note of sclerotic lesion involving the left ischium would recommend further nonemergent on CT of the pelvis
#Mechanical fall with left elbow abrasion
-Consulted wound care, evaluation and recommendations appreciated
#Pseudothrombocytopenia
-Plt 10 with clumping
-Repeat PLT 207
#Prolonged QTc
-QTc 499 MS will monitor
Hold prolonging QTc agents
EKG: HR 74 bpm sinus rhythm with PVCs, prolonged QTc 499 MS
#Bilateral leg peripheral edema concerning for underlying CHF
I/O, daily weights
-Consulted cardiology --> diuretics not needed at this time
CXR: Mild cardiomegaly, mild pulmonary vascular congestion
#Chronic extropion and bilateral eyes
DVT prophylaxis
SCDs
DNR per patient with son at bedside
Anticipated Discharge: 24 - 48 hours
Subjective/Interval History
-
Date of Service: April 22, 2024
Patient was seen and examined. He denied any significant pain or any other new, significant symptoms or complaints.
Objective Data
-
Vital Signs:
Vital Signs
Temp Pulse Resp BP Pulse Ox
98.2 F 83 16 139/96 98
04/22/24 11:40 04/22/24 11:40 04/22/24 11:40 04/22/24 11:40 04/22/24 11:40
I&O
04/21/24 04/22/24 04/23/24
06:59 06:59 06:59
Intake Total 720 / 720 1180 / 1180
Output Total 450 / 450 550 / 550
Balance 270 / 270 630 / 630
--- NOTE | 2024-04-22 14:32 | WOUNDNOTE ---
SACRUM- 1935, MR [id number]
--- NOTE | 2024-04-22 14:50 | WOUNDNOTE ---
[facility] RN note: Patient admitted with mechanical fall with left femur fracture. Left hip repair with nail fixation on 04/21
See H&P for complete history.
PMH: Prolonged QTc
Wound Location and type/assessment: Met patient while he was sitting in chair. Patient reported 'soreness' of sacral area. Silicone foam was removed from sacrum revealing .2x.2 open area with pink wound bed and serous drainage. The wound was
surrounded by red blanchable skin. Patient admitted with skin tears to left elbow and left shoulder s/p fall. Both skin tears and superficial and appear to be progressing toward healing.
Appetite: Reports poor appetite
Pressure redistribution devices in place: Static air overlay applied to bed and inflated during assessment. Air cushion also added to chair.
Plan: Patient transferred to bed with assistance of MOR Ramirez and PCT Prudence. Sacral wound was cleaned with saline and 5 layer sacral silicone border foam was applied to sacrum. Local wound care provided to skin tears as ordered. MOR Ramirez given
update. Will confirm orders with hospitalist. Care plan and discharge updated.
Note to case management of equipment requested for discharge: Air surface.
--- NOTE | 2024-04-22 16:20 | WOUNDNOTE ---
WOC RN NOTE: New order for limiting time OOB to chair to 2 hours confirmed with hospitalist. RN Ashley TT update.
--- NOTE | 2024-04-22 17:21 | CM ---
Met with patient at bedside and spoke with sonYong, on the phone; initial assessment completed
s/p left hip cephalomedullary nail procedure
Pharmacy verified: [id number] [facility], [place], [place]
Family Physician verified: Dr. Yasmani Pavon, DO; [address] , [place] [address];
Patient lives alone in a one floor Trailer on a 4 acre property; SonYong, lives in [place], [place] (will be here tomorrow)
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
Explained that PT recommended SNF to patient and his son; both are agreeable; list of facilities provided; need to follow up tomorrow and obtain preferences
Plan: Discharge to SNF when medically stable
[2024-04-22] MEDS: VISINE EYE DROPS 1 DROP OPHTH (20:04)
[2024-04-22] MEDS: DILAUDID 0.25 MG IV (23:11)
[2024-04-23] VITALS (7 sets, daily range): BP systolic 115–163; BP diastolic 68–86; PULSE 87; O2SAT 97
[2024-04-23] MEDS: TYLENOL PO ×3 (00:14→23:05)
--- NOTE | 2024-04-23 07:15 | W.PN.ORTHO ---
Today's Communication / Plan
-
88-year-old male postop day 2 left hip supplementary nail fixation with Dr. Vaz
-Weightbearing as tolerated to left lower extremity
-DVT prophylaxis aspirin 325 mg daily x 30 days unless otherwise per primary
-Pain controlled with current regimen
-PT/OT/discharge planning
-Diet per primary
-Saturated dressing will continue to follow at this time. Dressing changed
Assessment
.
Distal Motor Intact: Yes
Dressing:
Increased right through the dressings more so on the proximal. Not permeating borders yet. Surrounding borders are without erythema
Plan
.
Surgery / Date: 21 April [address] hip CMN with Dr. Vaz
Activity:
Out of bed.
PT/OT
Subjective
.
.:
Patient resting comfortably.
Vital Signs and Labs
.
Vital Signs and Labs:
Lab Results
04/21/24 19:20
04/21/24 19:20
Temp Pulse Resp BP Pulse Ox
97.2 F 85 16 115/68 91
04/23/24 03:35 04/23/24 03:35 04/23/24 03:35 04/23/24 03:35 04/23/24 03:35
PT 15.4 Sec (11.4-14.6) H 04/20/24 12:07
INR 1.24 04/20/24 12:07
[2024-04-23 09:32] LABS: Hematocrit 29.4 % (39.0-52.0); Hemoglobin 10.1 g/dL (13.0-18.0); Mean Corp Hgb Conc. 34.4 g/dL (33.0-37.0); Mean Corpuscular Hgb 29.7 pg (27.0-31.0); Mean Corpuscular Volume 86.5 fL (80.0-94.0); Mean Platelet Volume 10.9 fL (7.4-10.4); Platelet Count 207 10^3/uL (130-400); Red Cell Dist. Width 16.2 % (11.5-14.5); White Blood Cell Count 7.1 10^3/uL (4.8-10.8)
[2024-04-23 09:51] LABS: AST (SGOT) 38 U/L (17-59); Albumin 2.6 g/dl (3.5-5.0); Alkaline Phosphatase 227 U/L (38-126); Blood Urea Nitrogen 17 mg/dl (9-20); Calcium 8.5 mg/dl (8.4-10.2); Carbon Dioxide 24 mmol/L (22-30); Chloride 102 mmol/L (98-107); Estimated Creatinine Clearance 55 ml/min; Glucose 112 mg/dl (70-99); Magnesium 1.7 mg/dl (1.6-2.3); Potassium 3.9 mmol/L (3.5-5.1); Sodium 132 mmol/L (135-145); Total Bilirubin 0.7 mg/dl (0.2-1.3); Total Protein 4.4 g/dl (6.3-8.2); eGFR > 60.00
[2024-04-23] MEDS: VISINE EYE DROPS 1 DROP OPHTH (09:58)
[2024-04-23] MEDS: TYLENOL 650 MG PO ×4 (09:58→20:21)
[2024-04-23] MEDS: ASPIRIN 325 MG PO (09:59)
[2024-04-23 10:06] LABS: ALT (SGPT) < 30 U/L (0-50)
[2024-04-23] MEDS: COLACE PO ×2 (10:08→20:21)
[2024-04-23] MEDS: SENOKOT PO ×2 (10:08→20:21)
--- NOTE | 2024-04-23 12:50 | CM ---
Call from son stating that his first three SNF choices are: [facility], [facility] and [facility].
--- NOTE | 2024-04-23 16:11 | W.PN.HOSP.TC ---
Today's Communication/Plan
-
Placement pending
Continue Aspirin DVT PPx, PT/OT
Assessment / Plan
Assessment / Plan
Physical Exam
General: No Apparent Distress and Comfortable
HEENT: Normocephalic
Respiratory: Clear and Non Labored Respirations Bilaterally
Cardiac: S1/S2, Regular Rhythm and Other (diastolic murmur, 2+ dorsalis pedis, posterior tibial and ulnar pulses b/l)
GI: Soft, Non Tender, Non Distended and Normal Bowel Sounds
Musculoskeletal: Edema (2+ pitting edema). Left hip tenderness with left leg external rotation secondary to fall with left hip fracture, distal sensation intact, +2 dorsal pedal pulses.
Skin: Warm
Neuro: AAO x 3
Assessment/Plan
#Mechanical fall with left femur fracture status post left hip supplementary nail fixation with Dr. Vaz on April 21, 2024
-Despite the risk, patient needs this surgery to avoid complications in the future
-Consulted Ortho-[facility] Ortho, recommendations appreciated
-Pain control, bowel regimen
-Weightbearing as tolerated to left lower extremity
-DVT prophylaxis aspirin 325 mg daily x 30 days (first day was April 21, 2024)
-Tetanus shot given in ER
-PT/OT/case management eval
Left hip pelvis x-ray (as per radiologist's report): Minimally displaced acute intertrochanteric fracture of the left femur
Incidental note of sclerotic lesion involving the left ischium would recommend further nonemergent on CT of the pelvis
#Mechanical fall with left elbow abrasion
-Consulted wound care, evaluation and recommendations appreciated
#Pseudothrombocytopenia
-Plt 10 with clumping
-Repeat PLT 207
#Prolonged QTc
-QTc 499 MS will monitor
Hold prolonging QTc agents
EKG: HR 74 bpm sinus rhythm with PVCs, prolonged QTc 499 MS
#Bilateral leg peripheral edema concerning for underlying CHF
I/O, daily weights
-Consulted cardiology --> diuretics not needed at this time
CXR: Mild cardiomegaly, mild pulmonary vascular congestion
#Chronic extropion and bilateral eyes
-Continue home eye drops
#Underweight
DVT prophylaxis - Aspirin
DNR per patient with son at bedside
Anticipated Discharge: 24 - 48 hours
Subjective/Interval History
-
Date of Service: April 23, 2024
Objective Data
-
Labs:
Laboratory Results
04/23/24
09:24
WBC 7.1
Hgb 10.1 L
Hct 29.4 L
Plt Count 207
Sodium 132 L
Potassium 3.9
Chloride 102
Carbon Dioxide 24
BUN 17
Creatinine 0.7
Glucose 112 H
Calcium 8.5
Total Bilirubin 0.7
AST 38
ALT < 30
Alkaline Phosphatase 227 H
Vital Signs:
Vital Signs
Temp Pulse Resp BP Pulse Ox
98 F 85 16 126/79 96
04/23/24 15:04 04/23/24 15:04 04/23/24 15:04 04/23/24 15:04 04/23/24 15:04
I&O
04/22/24 04/23/24 04/24/24
06:59 06:59 06:59
Intake Total 1180 / 1180 2340 / 2340
Output Total 550 / 550 1425 / 1425
Balance 630 / 630 915 / 915
[2024-04-23] MEDS: ROXICODONE 10 MG PO (21:57)
[2024-04-24] VITALS (8 sets, daily range): BP systolic 119–154; BP diastolic 71–94; PULSE 93–95; O2SAT 96; BMI 19.8
[2024-04-24] MEDS: TYLENOL PO ×2 (03:18→23:59)
[2024-04-24] MEDS: COLACE 100 MG PO ×2 (09:07→20:40)
[2024-04-24] MEDS: ASPIRIN 325 MG PO (09:07)
[2024-04-24] MEDS: TYLENOL 650 MG PO ×4 (09:07→20:32)
[2024-04-24] MEDS: SENOKOT 17.2 MG PO (09:07)
--- NOTE | 2024-04-24 09:30 | W.PN.UPDATE ---
Update Note
Progress Note Update
Patient resting comfortably this morning. Did not respond to verbal stimuli, therefore I DND. remberto noted on dressings, but nothing breaching. discussed with nursing. If he is planned for discharge today she informed me that she can
change his dressings. Was a little confused last night after oxycodone administration. I discontinued oxycodone and ordered tramadol. He may continue to be WBAT on his walker. Continue treatment per the primary team. Orthopedics to sign off for
now. If any issues arise prior to discharge please reengage
--- NOTE | 2024-04-24 15:08 | CM ---
Received preferences for SNF. Referrals forwarded to [facility] and [facility].
--- NOTE | 2024-04-24 17:50 | W.PN.HOSP.TC ---
Today's Communication/Plan
-
Was a little confused last night after oxycodone administration -- orthopedics discontinued oxycodone and ordered tramadol
Placement pending
Assessment / Plan
Assessment / Plan
Physical Exam
General: No Apparent Distress and Comfortable
HEENT: Normocephalic
Respiratory: Clear and Non Labored Respirations Bilaterally
Cardiac: S1/S2, Regular Rhythm and Other (diastolic murmur, 2+ dorsalis pedis, posterior tibial and ulnar pulses b/l)
GI: Soft, Non Tender, Non Distended and Normal Bowel Sounds
Musculoskeletal: Edema (2+ pitting edema). Left hip tenderness with left leg external rotation secondary to fall with left hip fracture, distal sensation intact, +2 dorsal pedal pulses.
Skin: Warm
Neuro: AAO x 3
Assessment/Plan
#Mechanical fall with left femur fracture status post left hip supplementary nail fixation with Dr. Vaz on April 21, 2024
-Despite the risk, patient needs this surgery to avoid complications in the future
-Consulted Ortho-[facility] Ortho, recommendations appreciated
-Pain control, bowel regimen
-Weightbearing as tolerated to left lower extremity with walker
-DVT prophylaxis aspirin 325 mg daily x 30 days (first day was April 21, 2024)
-Tetanus shot given in ER
-PT/OT/case management eval
Left hip pelvis x-ray (as per radiologist's report): Minimally displaced acute intertrochanteric fracture of the left femur
Incidental note of sclerotic lesion involving the left ischium would recommend further nonemergent on CT of the pelvis
#Mechanical fall with left elbow abrasion
-Consulted wound care, evaluation and recommendations appreciated
#Pseudothrombocytopenia
-Plt 10 with clumping
-Repeat PLT 207
#Prolonged QTc
-QTc 499 MS will monitor
Hold prolonging QTc agents
EKG: HR 74 bpm sinus rhythm with PVCs, prolonged QTc 499 MS
#Bilateral leg peripheral edema concerning for underlying CHF
I/O, daily weights
-Consulted cardiology --> diuretics not needed at this time
CXR: Mild cardiomegaly, mild pulmonary vascular congestion
#Chronic extropion and bilateral eyes
-Continue home eye drops
#Underweight
DVT prophylaxis - Aspirin
DNR per patient with son at bedside
Anticipated Discharge: 24 - 48 hours
Subjective/Interval History
-
Date of Service: April 24, 2024
Patient was seen and examined. He denied any new significant symptoms or complaints.
Objective Data
-
Vital Signs:
Vital Signs
Temp Pulse Resp BP Pulse Ox
97.7 F 58 16 121/71 96
04/24/24 15:31 04/24/24 15:31 04/24/24 15:31 04/24/24 15:31 04/24/24 15:31
I&O
04/23/24 04/24/24 04/25/24
06:59 06:59 06:59
Intake Total 2340 / 2340 1440 / 1440 600 / 600
Output Total 1425 / 1425 500 / 500 370 / 370
Balance 915 / 915 940 / 940 230 / 230
[2024-04-24] MEDS: SENOKOT PO ×2 (20:32→20:38)
[2024-04-24] MEDS: ULTRAM 50 MG PO (22:50)
[2024-04-25] VITALS (7 sets, daily range): BP systolic 131–149; BP diastolic 72–82; BMI 21.6
[2024-04-25] MEDS: TYLENOL 650 MG PO ×4 (03:15→20:51)
[2024-04-25] MEDS: COLACE 100 MG PO ×2 (08:14→20:51)
[2024-04-25] MEDS: SENOKOT 17.2 MG PO (08:14)
[2024-04-25] MEDS: ASPIRIN 325 MG PO (08:14)
[2024-04-25 14:32] LABS: Hematocrit 31.5 % (39.0-52.0); Hemoglobin 10.7 g/dL (13.0-18.0); Mean Corpuscular Hgb 29.6 pg (27.0-31.0); Mean Corpuscular Volume 87.3 fL (80.0-94.0); Mean Platelet Volume 11.3 fL (7.4-10.4); Platelet Count 205 10^3/uL (130-400); Red Blood Cell Count 3.61 10^6/uL (4.70-6.10); Red Cell Dist. Width 16.4 % (11.5-14.5); White Blood Cell Count 6.4 10^3/uL (4.8-10.8)
--- NOTE | 2024-04-25 14:49 | PTCARENOTE ---
Patient asking for medications from his bag, upon checking patient's own duffle bag four bottles of supplements were found; Patient had Multienzyme, L-Tryptophan, Melatonin, and Multienzyme Nutrient Digestion supplements; When asked if the patient
had someone bring them in for him , he stated 'I always take these they help keep me healthy'; When asked if he had been taking the supplements without the knowledge of staff, patient stated again 'I always take these'; Patient informed he cannot
have family or friends bring in supplements or medications from home without notifying staff, patient informed he cannot take his own supplements or medications unless prescribed by the provider and dispensed by staff; Per admission documentation
the patient did not bring in any medications from home; Three out of the four supplement bottles were , patient stated 'there is different stuff in there that isn't '; Supplement bottles removed from patient, sent to pharmacy to be
kept while the patient is in the hospital; Patient informed that upon discharge his supplements will be returned to him
[2024-04-25 14:51] LABS: Blood Urea Nitrogen 16 mg/dl (9-20); Calcium 9.1 mg/dl (8.4-10.2); Carbon Dioxide 24 mmol/L (22-30); Chloride 99 mmol/L (98-107); Estimated Creatinine Clearance 71 ml/min; Glucose 78 mg/dl (70-99); Iron 72 ug/dl (49-181); Potassium 4.9 mmol/L (3.5-5.1); Sodium 127 mmol/L (135-145); eGFR > 60.00
[2024-04-25 15:02] LABS: Percent Saturation 37 % (20-50); Total Iron Binding Capacity 190 ug/dl (261-462)
[2024-04-25] MEDS: TYLENOL PO (15:11)
--- NOTE | 2024-04-25 15:16 | W.PN.HOSP.TC ---
Today's Communication/Plan
-
Hyponatremia -- PO Fluid restriction ordered and hyponatremia studies ordered
Will consult nephrology
Assessment / Plan
Assessment / Plan
Physical Exam
General: No Apparent Distress and Comfortable
HEENT: Normocephalic
Respiratory: Clear and Non Labored Respirations Bilaterally
Cardiac: S1/S2, Regular Rhythm and Other (diastolic murmur, 2+ dorsalis pedis, posterior tibial and ulnar pulses b/l)
GI: Soft, Non Tender, Non Distended and Normal Bowel Sounds
Musculoskeletal: Edema (2+ pitting edema). Left hip tenderness with left leg external rotation secondary to fall with left hip fracture, distal sensation intact, +2 dorsal pedal pulses.
Skin: Warm
Neuro: AAO x 3
Assessment/Plan
#Mechanical fall with left femur fracture status post left hip supplementary nail fixation with Dr. Vaz on April 21, 2024
-Despite the risk, patient needs this surgery to avoid complications in the future
-Consulted Ortho-[facility], recommendations appreciated
-Pain control, bowel regimen
-Weightbearing as tolerated to left lower extremity with walker
-DVT prophylaxis aspirin 325 mg daily x 30 days (first day was April 21, 2024)
-Tetanus shot given in ER
-PT/OT/case management eval
Left hip pelvis x-ray (as per radiologist's report): Minimally displaced acute intertrochanteric fracture of the left femur
Incidental note of sclerotic lesion involving the left ischium would recommend further nonemergent on CT of the pelvis
#Mechanical fall with left elbow abrasion
-Consulted wound care, evaluation and recommendations appreciated
#Hyponatremia
-Started PO FR 40 ounces daily
-Ordered urine sodium, as well as serum and urine osmoles
-Will consult nephrology
#Pseudothrombocytopenia
-Plt 10 with clumping
-Repeat PLT 207
#Prolonged QTc
-QTc 499 MS will monitor
Hold prolonging QTc agents
EKG: HR 74 bpm sinus rhythm with PVCs, prolonged QTc 499 MS
#Bilateral leg peripheral edema concerning for underlying CHF
I/O, daily weights
-Consulted cardiology --> diuretics not needed at this time
CXR: Mild cardiomegaly, mild pulmonary vascular congestion
#Chronic extropion and bilateral eyes
-Continue home eye drops
#Underweight
DVT prophylaxis - Aspirin
DNR per patient with son at bedside
Anticipated Discharge: > 48 hours
Subjective/Interval History
-
Date of Service: April 25, 2024
Patient was seen and examined. He reports that overnight he had some lower extremity muscle spasms which resolved.
Objective Data
-
Labs:
Laboratory Results
04/25/24
14:07
WBC 6.4
Hgb 10.7 L
Hct 31.5 L
Plt Count 205
Sodium 127 L
Potassium 4.9 D
Chloride 99
Carbon Dioxide 24
BUN 16
Creatinine 0.6 L
Glucose 78
Calcium 9.1
Vital Signs:
Vital Signs
Temp Pulse Resp BP Pulse Ox
98.1 F 73 16 132/72 95
04/25/24 11:27 04/25/24 11:27 04/25/24 11:27 04/25/24 11:27 04/25/24 11:27
I&O
04/24/24 04/25/24 04/26/24
06:59 06:59 06:59
Intake Total 1440 / 1440 720 / 720
Output Total 500 / 500 620 / 620
Balance 940 / 940 100 / 100
[2024-04-25 16:02] LABS: Osmolality Serum 271 mOsm/kg (275-300)
[2024-04-25 16:18] LABS: Osmolality Urine 470 mOsm/kg (300-900)
[2024-04-25 16:34] LABS: Urine Sodium 11 mmol/L (30-90)
[2024-04-25] MEDS: SENOKOT PO (20:51)
[2024-04-25] MEDS: ULTRAM 50 MG PO (20:55)
[2024-04-26] VITALS (8 sets, daily range): BP systolic 133–160; BP diastolic 74–89; PULSE 80; BMI 21.4
[2024-04-26] MEDS: TYLENOL PO ×2 (00:41→04:38)
[2024-04-26 00:42] LABS: Blood Urea Nitrogen 15 mg/dl (9-20); Calcium 8.7 mg/dl (8.4-10.2); Carbon Dioxide 22 mmol/L (22-30); Chloride 101 mmol/L (98-107); Estimated Creatinine Clearance 71 ml/min; Glucose 74 mg/dl (70-99); Potassium 4.4 mmol/L (3.5-5.1); Sodium 128 mmol/L (135-145); eGFR > 60.00
[2024-04-26 07:15] LABS: Hematocrit 30.7 % (39.0-52.0); Hemoglobin 10.4 g/dL (13.0-18.0); Mean Corp Hgb Conc. 33.9 g/dL (33.0-37.0); Mean Corpuscular Hgb 29.8 pg (27.0-31.0); Mean Platelet Volume 11.5 fL (7.4-10.4); Platelet Count 188 10^3/uL (130-400); Red Blood Cell Count 3.49 10^6/uL (4.70-6.10); Red Cell Dist. Width 16.5 % (11.5-14.5); White Blood Cell Count 5.9 10^3/uL (4.8-10.8)
[2024-04-26 07:16] LABS: Blood Urea Nitrogen 15 mg/dl (9-20); Calcium 8.5 mg/dl (8.4-10.2); Carbon Dioxide 23 mmol/L (22-30); Chloride 100 mmol/L (98-107); Estimated Creatinine Clearance 70 ml/min; Glucose 71 mg/dl (70-99); Magnesium 1.7 mg/dl (1.6-2.3); Potassium 4.2 mmol/L (3.5-5.1); Sodium 129 mmol/L (135-145); eGFR > 60.00
--- NOTE | 2024-04-26 08:29 | W.CON.NEPH ---
Consultation
-
Date/Time Consultation Requested: 04/25/2024 430pm
Date/Time Consultation Performed: 04/26/2024 830AM
Requesting Provider: Dr. Blunt
Performing Provider: Dr. Dhillon
Reason for Consultation: Hyponatremia
Medical History
-
Chief Complaint: Hyponatremia
History of Present Illness:
The patient is an 88-year-old male who fell in the parking lot on his left side as his dog was pulling the leash trying to run after an animal. He presented to the ER by EMS with left-sided hip pain and rotation of his left leg with left elbow
abrasion. He denies medical problems. He reports he sees a doctor once a year and was seen 3 weeks ago. He has bilateral leg edema +2 he reports has been for 10 years although has not seen a tank builder helper and had any evaluation.
He denies headache, neck pain, fever, chills, chest pain, palpitations, shortness breath, cough, abdominal pain, nausea, vomiting, diarrhea, urinary symptoms. He denies any past medical history. He was noted to have a left femur fracture and
eventually underwent left hip supplementary nail fixation on April 21, 2024. Over the course of his admission his sodium was dropped from 133 to eventually 127 and nephrology was consulted for hypotension.
Past Medical History
Chronic edema
Past Medical History: None
Past Surgical History: None
Social History
Tobacco: Non-Smoker
Alcohol: None
Family History
No chronic kidney disease
Allergies / Home Medications
Allergy/AdvReac Type Severity Reaction Status Date / Time
No Known Allergies Allergy Unverified 04/20/24 09:49
�Medication �Instructions �Recorded �Confirmed �Type
Herbals And Vitamins 1 dose PO DAILY Supplement 04/20/24 04/23/24 History
naphazoline 0.05403 %-pheniramine 1 drp ophthalmic (eye) QID PRN Dry 04/22/24 04/23/24 History
0.315 % eye drops (Opcon-A) eyes, itching
Review of Systems
-
History Source: Patient
All other systems: Negative unless noted
Abdomen/GI: Anorexia
Musculoskeletal: Edema and Other (Postoperative left hip pain)
Physical Exam
Vital Signs
Vital Signs
Temp Pulse Resp BP Pulse Ox
98.0 F 95 18 157/89 96
04/26/24 08:00 04/26/24 08:00 04/26/24 08:00 04/26/24 08:00 04/26/24 08:00
Lab Results
WBC 5.9 10^3/uL (4.8-10.8) 04/26/24 06:24
RBC 3.49 10^6/uL (4.70-6.10) L 04/26/24 06:24
Hgb 10.4 g/dL (13.0-18.0) L 04/26/24 06:24
Hct 30.7 % (39.0-52.0) L 04/26/24 06:24
Plt Count 188 10^3/uL (130-400) 04/26/24 06:24
Sodium 129 mmol/L (135-145) L 04/26/24 06:25
Potassium 4.2 mmol/L (3.5-5.1) 04/26/24 06:25
Chloride 100 mmol/L (98-107) 04/26/24 06:25
Carbon Dioxide 23 mmol/L (22-30) 04/26/24 06:25
BUN 15 mg/dl (9-20) 04/26/24 06:25
Creatinine 0.6 mg/dL (0.7-1.3) L 04/26/24 06:25
eGFR > 60.00 04/26/24 06:25
Glucose 71 mg/dl (70-99) 04/26/24 06:25
Calcium 8.5 mg/dl (8.4-10.2) 04/26/24 06:25
Pmo-T-Bjdwxqrdnit Pept 3580 pg/ml 04/20/24 10:39
Albumin 2.6 g/dl (3.5-5.0) L 04/23/24 09:24
Physical Exam
General: AOx3, Nontoxic , NAD
HEENT: PERRL, EOMI, Anicteric, Conjunctivae injected , Ear/Nose Intact, Hearing Normal, Oropharynx Clear/Moist, Dentition Intact, Facial Symmetry, Neck Supple, Neck: Trachea Midline, No JVD and No Thyromegaly, no Bruits
Respiratory: Clear to auscultation bilaterally with normal lung exersion
Cardiac: S1/S2 and Regular Rate/Rhythm
Breast: Deferred by me
Abdomen: Soft, Nontender, Nondistended, Normal Bowel Sounds and No Hepatosplenomegaly
Rectal: Deferred by Provider
Genito-urinary: No Costovertebral Tenderness
Extremities: No Clubbing, No Cyanosis and +1 edema
Skin: No Rash or open lesions
Neuro: Nonfocal/Grossly Intact, CN II-XII (Intact) and Strength (Musculoskeletal exam 5 out of 5 both upper and right lower extremity)
Hematologic/Lymphatic: No Cervical Lymphadenopathy, No Submandibular Lymphadenopathy and No Supraclavicular Lymphadenopathy
Psych: Mood/afflect pleasant, Insight/judgement good and Appropriate
Vascular: plus 1pedal and radial pulses
Data Reviewed
-
Radiology: Image Personally Visualized and interpreted (Chest x-ray personally reviewed by me no evidence of acute congestive heart failure or pneumonic process) and Report Reviewed by me
Medical Tests (Nuc Med, Echo etc): Other (EKG report reviewed by me sinus rhythm with occasional PACs and PVCs)
Labs: Labs Reviewed by me ([facility] CBC urine osmolality)
Assessment/Plan
-
Impression:
Status post left hip repair following mechanical fall
Hyponatremia
Chronic edema with possible underlying diastolic heart failure
Pseudo thrombocytopenia
Anemia
Plan:
-New workup for edema and hyponatremia
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
-Urine sodium of 11 less likely consistent with volume overload although patient does have ongoing edema and elevated proBNP,weights up
-maintain FR at48oz
-If weights continue to increase and her urine output suspect will check postvoid bladder scan to assess for urinary obstruction postoperatively
-may require p.o. Lasix every other day for both edema and to promote free water excretion for hyponatremia
-Patient notably hypoalbuminemic which may also be affecting edema, will check urinalysis for proteinuria
[2024-04-26] MEDS: TYLENOL 650 MG PO ×4 (09:07→20:25)
[2024-04-26] MEDS: ASPIRIN 325 MG PO (09:08)
[2024-04-26] MEDS: SENOKOT 17.2 MG PO ×2 (09:09→20:25)
[2024-04-26] MEDS: COLACE 100 MG PO ×2 (09:09→20:26)
--- NOTE | 2024-04-26 12:23 | W.PN.HOSP.TC ---
Today's Communication/Plan
-
Sodium improving
Appreciate nephrology
Assessment / Plan
Assessment / Plan
Physical Exam
General: No Apparent Distress and Comfortable
HEENT: Normocephalic
Respiratory: Clear and Non Labored Respirations Bilaterally
Cardiac: S1/S2, Regular Rhythm and Other (diastolic murmur, 2+ dorsalis pedis, posterior tibial and ulnar pulses b/l)
GI: Soft, Non Tender, Non Distended and Normal Bowel Sounds
Musculoskeletal: Edema (2+ pitting edema). Left hip tenderness with left leg external rotation secondary to fall with left hip fracture, distal sensation intact, +2 dorsal pedal pulses.
Skin: Warm
Neuro: AAO x 3
Assessment/Plan
#Mechanical fall with left femur fracture status post left hip supplementary nail fixation with Dr. Vaz on April 21, 2024
-Consulted Ortho-[facility], recommendations appreciated -- surgery performed on 04/21/24
-Pain control, bowel regimen
-Weightbearing as tolerated to left lower extremity with walker
-DVT prophylaxis aspirin 325 mg daily x 30 days (first day was April 21, 2024)
-Tetanus shot given in ER
-PT/OT/case management eval
Left hip pelvis x-ray (as per radiologist's report): Minimally displaced acute intertrochanteric fracture of the left femur
Incidental note of sclerotic lesion involving the left ischium would recommend further nonemergent on CT of the pelvis
#Mechanical fall with left elbow abrasion
-Consulted wound care, evaluation and recommendations appreciated
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
-Last note from cardio this admission said no diuretics but patient may need diuretic Q48H, appreciate nephrology
-Continue PO FR 48 ounces daily
-Urine sodium, as well as serum and urine osmoles noted
-Bladder scans
-Consulted nephrology, recommendations appreciated
#Pseudothrombocytopenia on admission
-Plt 10 with clumping
-Repeat PLT 207
#Prolonged QTc
-QTc 499 MS will monitor
Hold prolonging QTc agents
EKG: HR 74 bpm sinus rhythm with PVCs, prolonged QTc 499 MS
#Bilateral leg peripheral edema concerning for underlying HFpEF
-Low albumin also contributing to edema
-Continue I/O, daily weights
-Consulted cardiology --> diuretics not needed but patient's weights have been going up so may need p.o. Lasix every other day for both edema and to promote free water excretion for hyponatremia
#Chronic extropion and bilateral eyes
-Continue home eye drops
#Underweight
DVT prophylaxis - Aspirin
DNR
Anticipated Discharge: 24 - 48 hours
Subjective/Interval History
-
Date of Service: April 26, 2024
Patient was seen and examined. He reported feeling a lot better, leg spasms are gone now, he said he slept well last night.
Objective Data
-
Labs:
Laboratory Results
04/26/24 04/26/24 04/26/24
00:03 06:24 06:25
WBC 5.9
Hgb 10.4 L
Hct 30.7 L
Plt Count 188
Sodium 128 L 129 L
Potassium 4.4 4.2
Chloride 101 100
Carbon Dioxide 22 23
BUN 15 15
Creatinine 0.6 L 0.6 L
Glucose 74 71
Calcium 8.7 8.5
Vital Signs:
Vital Signs
Temp Pulse Resp BP Pulse Ox
97.5 F 87 17 144/74 96
04/26/24 11:35 04/26/24 11:35 04/26/24 11:35 04/26/24 11:35 04/26/24 11:35
I&O
04/25/24 04/26/24 04/27/24
06:59 06:59 06:59
Intake Total 720 / 720 1440 / 1440
Output Total 620 / 620 1575 / 1575 200 / 200
Balance 100 / 100 -135 / -135 -200 / -200
[2024-04-26 16:00] LABS: Urine Albumin Negative (Neg - Trace); Urine Bilirubin Negative (Negative); Urine Character Clear (Clear); Urine Color Yellow; Urine Glucose Negative (Negative); Urine Ketone Trace (Negative); Urine Leukocyte 1+ (Negative); Urine Nitrite Negative (Negative); Urine Occult Blood Negative (Negative); Urine Specific Gravity 1.025 (<1.030); Urine Urobilinogen Negative (Neg - 1+)
[2024-04-26 16:10] LABS: Urine Bacteria Moderate (Negative); Urine Red Blood Cell 0-2 /HPF (0-2)
--- NOTE | 2024-04-26 20:30 | PTCARENOTE ---
Pt was OOB to chair, wanted to go back to bed. Staff assist x2 w RW, pt was not able to move LLE much, was pivoted into bed. Pt also had episode of urinary incontinence while in chair. Pt reported some discomfort after ambulation. Assessment
ongoing.
[2024-04-26] MEDS: ULTRAM 50 MG PO (21:51)
[2024-04-27 03:21] VITALS: BP 147/85
[2024-04-27] MEDS: TYLENOL PO ×3 (04:35→15:02)
[2024-04-27 06:00] VITALS: BMI 21.3
[2024-04-27 07:00] LABS: Hematocrit 30.8 % (39.0-52.0); Hemoglobin 10.5 g/dL (13.0-18.0); Mean Corp Hgb Conc. 34.1 g/dL (33.0-37.0); Mean Corpuscular Hgb 29.8 pg (27.0-31.0); Mean Corpuscular Volume 87.5 fL (80.0-94.0); Mean Platelet Volume 11.2 fL (7.4-10.4); Platelet Count 202 10^3/uL (130-400); Red Blood Cell Count 3.52 10^6/uL (4.70-6.10); Red Cell Dist. Width 16.8 % (11.5-14.5); White Blood Cell Count 6.2 10^3/uL (4.8-10.8)
[2024-04-27 07:10] VITALS: BP 148/81
[2024-04-27 07:18] LABS: Blood Urea Nitrogen 14 mg/dl (9-20); Calcium 8.8 mg/dl (8.4-10.2); Carbon Dioxide 23 mmol/L (22-30); Chloride 100 mmol/L (98-107); Estimated Creatinine Clearance 70 ml/min; Glucose 73 mg/dl (70-99); Magnesium 1.8 mg/dl (1.6-2.3); Potassium 4.4 mmol/L (3.5-5.1); Sodium 129 mmol/L (135-145); eGFR > 60.00
[2024-04-27] MEDS: SENOKOT 17.2 MG PO (08:47)
[2024-04-27] MEDS: ASPIRIN 325 MG PO (08:47)
[2024-04-27] MEDS: COLACE 100 MG PO (08:47)
[2024-04-27] MEDS: MILK OF MAGNESIA 30 ML PO (08:48)
[2024-04-27] MEDS: TYLENOL 650 MG PO ×2 (08:48→13:10)
[2024-04-27] MEDS: VISINE EYE DROPS 1 DROP OPHTH (09:20)
--- NOTE | 2024-04-27 10:44 | W.PN.NEPH.PH ---
Today's Communication / Plan
-
[facility]sca
Assessment/Plan
-
Impression:
Status post left hip repair following mechanical fall
Hyponatremia
Chronic edema with possible underlying diastolic heart failure
Pseudo thrombocytopenia
Anemia
Plan:
samsca
follow BMP
FR still
bowel regimen
-
-
Date of Service: April 27, 2024
CC / HPI / ROS
-
Chief Complaint:
hyponatremia
History of Present Illness:
Na stable at 129
BP stable
pain controlled
constipated
Review of Systems:
no CP/SOB
Labs
-
Labs:
WBC 6.2 10^3/uL (4.8-10.8) 04/27/24 05:59
RBC 3.52 10^6/uL (4.70-6.10) L 04/27/24 05:59
Hgb 10.5 g/dL (13.0-18.0) L 04/27/24 05:59
Hct 30.8 % (39.0-52.0) L 04/27/24 05:59
Plt Count 202 10^3/uL (130-400) 04/27/24 05:59
Sodium 129 mmol/L (135-145) L 04/27/24 05:59
Potassium 4.4 mmol/L (3.5-5.1) 04/27/24 05:59
Chloride 100 mmol/L (98-107) 04/27/24 05:59
Carbon Dioxide 23 mmol/L (22-30) 04/27/24 05:59
BUN 14 mg/dl (9-20) 04/27/24 05:59
Creatinine 0.6 mg/dL (0.7-1.3) L 04/27/24 05:59
eGFR > 60.00 04/27/24 05:59
Glucose 73 mg/dl (70-99) 04/27/24 05:59
Calcium 8.8 mg/dl (8.4-10.2) 04/27/24 05:59
Hdv-Y-Crotydyssdf Pept 3580 pg/ml 04/20/24 10:39
Albumin 2.6 g/dl (3.5-5.0) L 04/23/24 09:24
Physical Exam
-
Vital Signs:
Vital Signs
Temp Pulse Resp BP Pulse Ox
97.3 F 81 18 148/81 96
04/27/24 07:10 04/27/24 07:10 04/27/24 07:10 04/27/24 07:10 04/27/24 07:10
Cardiovascular:: Regular rate and rhythm
Respiratory:: Bilateral: Coarse
Lung Excursion:: Normal
Abdomen:: Nontender and Soft
Bowel Sounds:: Normal
Extremity Edema:: None: Bilateral:
[2024-04-27 11:00] VITALS: BP 109/72
[2024-04-27 11:14] VITALS: BMI 21.3
[2024-04-27] MEDS: MIRALAX 17 GRAMS PO (11:19)
[2024-04-27] MEDS: SAMSCA 15 MG PO (11:19)
[2024-04-27 12:45] VITALS: BP 130/82; PULSE 85; O2SAT 97
[2024-04-27 12:52] VITALS: BP 130/82; PULSE 88; O2SAT 97
--- NOTE | 2024-04-27 13:05 | W.DS.TRANS ---
DC Summary - Damage Appraiser
-
Discharge Instructions:
Discharge Diagnosis/Procedures Left femur fracture.
Diet Regular
Blood Work BMP 04/30/2024
Instructions:
Stand-Alone Forms:
Changes to Home Medications: Yes
Discharge Medications:
DC Medications w/original date entered in [facility]
acetaminophen 325 mg tablet 650 mg (2 x 325 mg) PO Q4HWA #60 tabs 04/27/24
aspirin 325 mg tablet 325 mg PO DAILY #30 tabs 04/27/24
docusate sodium 100 mg capsule 100 mg PO BID #60 caps 04/27/24
polyethylene glycol 3350 17 gram oral powder packet (HealthyLax) 17 g PO DAILY #30 ea 04/27/24
polyvinyl alcohol-povidone (PF) 1.4 %-0.6 % eye drops in a dropperette (Refresh Classic (PF)) 1 drops ophthalmic (eye) QIDPRN PRN dry eyes #1 ea 04/27/24
tetrahydrozoline 0.05 % eye drops (Eye Drops (tetrahydrozoline)) 1 drp ophthalmic (eye) QIDPRN PRN DRY EYES OR ITCHING EYES #1 mL 04/27/24
tramadol 50 mg tablet 50 mg PO Q6HPRN PRN MODERATE PAIN #20 tabs 04/27/24
Home Medication Changes
all of above
Pending Results: No
--- NOTE | 2024-04-27 13:35 | CM ---
Addendum entered by James Mccord 04/27/24 13:41:
Transport scheduled for 5:00 PM. Son and Naya at [facility] notified.
Original Note:
Patient has been medically cleared for discharge to [facility] for group home and rehab services. Transport is being scheduled. Yong Gregory, aware. Facility contact is Naya @ [phone].
NURSE TO NURSE REPORT # [phone]
FAX # [phone]
[2024-04-27 15:10] VITALS: BP 130/76
--- NOTE | 2024-04-28 13:50 | PN.CDI ---
CDI
- -
CDI:
Selected Entries
Physician Documentation Request
Admit Date: 04/20/24 13:15
Dear Doctor Delilah,
04/27 Deputy Chief Executive Assessment: 'CBW reflects a loss of 15- 16lbs or 10-11% change in wt in 5-6 months. Pt was observed with protruding clavicle, hollow orbital, protruding acromion process, exposed ribs. Pt meets ASPEN and AND criteria for
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
Based on the above information and your assessment, which of the following most accurately represents the patient's nutritional status?
Moderate protein calorie malnutrition
Other
[place] Criteria ([facility] Hospitalist 2017)
2 or more criteria must be present for either
non severe or severe malnutrition
Note that the criteria differs related to the
presence of an acute or chronic illness
Acute Illness Chronic Illness
Energy Intake Non Severe: <75% for >7 days Non Severe: <75% for >1 month
Severe: <50% for >5 days Severe: <75% for >1 month
Weight Loss Non Severe: 1-2% over 1 week Non Severe: 5% over 1 month
5% over 1 month 7.5% over 3 months
7.5% over 3 months 10% over 6 months
1 year N/A 20% over 1 year
Severe: >2% over 1 week Severe: >5% over 1 month
>5% over 1 month >7.5% over 3 months
>7.5% over 3 months >10% over 6 months
1 year N/A >20% over 1 year
Body Fat Non Severe: Mild Decrease Non Severe: Mild Loss
Severe: Moderate Decrease Severe: Severe Loss
Muscle Mass Non Severe: Mild Decrease Non Severe: Mild Loss
Severe: Moderate Decrease Severe: Severe Loss
Fluid Accumulation Non Severe: Mild Accumulation Non Severe: Mild Accumulation
Severe: Moderate to severe Severe: Moderate to severe
accumulation accumulation
Reduced Warp Tier Strength Non Severe: N/A Non Severe: N/A
Severe: Measurably reduced Severe: Measurably reduced
Additional criteria that can be used to Determine if Mild or Moderate Malnutrition ([employer]ck Manual 2018)
Mild Moderate Severe
Albumin gm/dl <3.0 gm/dl <2.5 gm/dl <2.0 gm/dl
Pre Albumin mg/dl <15 gm/dl <10 mg/dl <5.0 mg/dl
BMI <18.5 <17 <16
Use of terms such as suspected, likely, concern for, or probable (associated with a specific diagnosis that is being evaluated, monitored, or treated as if it exists) are acceptable and can be coded in the inpatient setting, when documented at the
time of discharge.
Thank you,
Maria Luisa Dubon RN, BSN
CDI Specialist
Available via [facility] text
Please use your independent medical judgment in providing your response.
--- NOTE | 2024-05-08 12:43 | W.PN.UPDATE ---
Update Note
Progress Note Update
Moderate protein calorie malnutrition
== END 2024-04-27 17:26 | DRG 481 ==
LOC: 2 SOUTH 13:15
PROVIDERS: Clinical Nurse Specialist Family Health; Registered Nurse; ADMITTING PHYSICIAN Hospitalist; ATTENDING PHYSICIAN Internal Medicine; CONSULT PHYSICIAN Internal Medicine Cardiovascular Disease; CONSULT PHYSICIAN Specialist; EMERGENCY PHYSICIAN Emergency Medicine
PROC: 3E0234Z Introduction of Serum, Toxoid and Vaccine into Muscle, Percutaneous Approach (ICD-10-PCS; 2024-04-20)
PROC: 0QS736Z Reposition Left Upper Femur with Intramedullary Internal Fixation Device, Percutaneous Approach (ICD-10-PCS; 2024-04-21)
DX: S72.142A Displaced intertrochanteric fracture of left femur, initial encounter for closed fracture (principal); E22.2 Syndrome of inappropriate secretion of antidiuretic hormone; I50.32 Chronic diastolic (congestive) heart failure; Z68.1 Body mass index [BMI] 19.9 or less, adult; E44.0 Moderate protein-calorie malnutrition; S50.312A Abrasion of left elbow, initial encounter; M81.0 Age-related osteoporosis without current pathological fracture; R94.31 Abnormal electrocardiogram [ECG] [EKG]; D64.9 Anemia, unspecified; H02.103 Unspecified ectropion of right eye, unspecified eyelid; H02.106 Unspecified ectropion of left eye, unspecified eyelid; I08.3 Combined rheumatic disorders of mitral, aortic and tricuspid valves; Z87.891 Personal history of nicotine dependence; W18.39XA Other fall on same level, initial encounter; Z23 Encounter for immunization
CPT/HCPCS: 71045; 73502; 73552; 76000; 80048; 80053; 81003; 81015; 82728; 83540; 83550; 83735; 83880; 83930; 83935; 84300; 84443; 84484; 85025; 85027; 85610; 85730; 86850; 86900; 86901; 90715; 93005; 93306; 93970; 96374; 97110; 97116; 97162; 97166; 97530; 97535; 99285; C1713; C1769